=== PATIENT | male | born 1995 | race Caucasian/White ===

== ENCOUNTER 2020-08-18 07:45 | Emergency (ER) | payer SELFPAY ==
[2020-08-18] MEDS ORDERED: Ondansetron ODT 4 MG TAB ONE (08:03)
[2020-08-18] MEDS ORDERED: Prochlorperazine 10 MG/2 ML VIAL ONE (09:17)
== END 2020-08-18 10:25 | disposition home or self-care (01) ==
LOC: BURERS 07:45
DX: R51.9 Headache, unspecified (principal); R19.7 Diarrhea, unspecified; R11.2 Nausea with vomiting, unspecified
CPT/HCPCS: 96374; J0780; Q0162